=== PATIENT | female | born 1985 | race American Indian/Alaskan Native ===

== ENCOUNTER 2020-10-23 09:31 | Emergency (ER) | payer SELFPAY ==
[2020-10-23 09:50] VITALS: BP 130/53
[2020-10-23] MEDS ORDERED: SODIUM CHLORIDE 0.9% 1000 ML 1,000 ML IV ONE (10:16)
[2020-10-23] MEDS ORDERED: diphenhydrAMINE 50 MG/ML VIAL IV ONE (10:16)
[2020-10-23] MEDS ORDERED: DICYCLOMINE 20 MG/2 ML INJ IM ONE (10:16)
--- NOTE | 2020-10-23 10:19 | Emergency Department Report ---
ED General Adult HPI - General Chief complaint: Abdominal Pain Stated complaint: ABD PAIN Time Seen by Provider: 10/23/20 09:59 Source: patient, EMS Mode of arrival: Stretcher Limitations: No Limitations - History of Present Illness Initial comments: 34-year-old female patient presents to the emergency department via EMS with complaints of abdominal pain, nausea, vomiting, and diarrhea starting this morning. Patient states she took oral antibiotics for pelvic inflammatory disease on an empty stomach prior to the onset of her symptoms. States she has had four episodes of nonbloody diarrhea today. No known sick contacts. No recent travel. Last menstrual period was "last month sometime." No prior abdominal surgeries. Denies fever, chills, cough, hematemesis, back pain, constipation, rash, urinary symptoms. Denies all other complaints at this time. - Related Data Previous Rx's Medication Instructions Recorded Last Taken Type Metoclopramide [Reglan] 10 mg PO TID #20 tab 10/23/20 Unknown Rx Allergies Allergy/AdvReac Type Severity Reaction Status Date / Time No Known Allergies Allergy Unverified 10/23/20 09:50 ED Review of Systems ROS: Stated complaint: ABD PAIN Other details as noted in HPI Other: GENERAL: Positive for chills. ENT: Negative for ear pain, difficulty hearing, sore throat, nasal congestion, epistaxis. CARDIOVASCULAR: Negative for chest pain, palpitations, lower extremity swelling. PULMONARY: Negative for cough, dyspnea, wheezing, orthopnea, cyanosis. GASTROINTESTINAL: Positive for abdominal pain, nausea, vomiting, diarrhea. MUSCULOSKELETAL: Negative for joint pain, joint swelling, myalgias, back pain, neck pain. NEUROLOGICAL: Positive for generalized weakness. INTEGUMENTARY: Negative for erythema, rash, diaphoresis, laceration, ecchymosis. HEMATOLOGICAL: Negative for hemoptysis, hematemesis, hematochezia, hematuria. PSYCHIATRIC: Negative for hallucinations, suicidal ideation, homicidal ideation, anxiety, depression. ED Past Medical Hx - Past Medical History Previous Medical History?: Yes Additional medical history: heart murmur - Surgical History Past Surgical History?: Yes Additional Surgical History: - Medications Home Medications: Home Medications Medication Instructions Recorded Confirmed Last Taken Type Metoclopramide [Reglan] 10 mg PO TID #20 tab 10/23/20 Unknown Rx ED Physical Exam - General Limitations: No Limitations - Other Other exam information: General: Awake and alert. Actively vomiting. Appears uncomfortable. Head: Atraumatic, normocephalic. Eyes: EOMI. Pupils are equal and round. Normal sclera and conjunctiva. ENT: Oral mucosa is moist. Normal pharyngeal exam. Neck: Supple. No lymphadenopathy. Pulmonary: No respiratory distress. Clear to auscultation bilaterally. Cardiac: Regular rate and rhythm. Pulses are palpable and equal bilaterally. No lower extremity cyanosis or edema. Skin: Warm and dry. No rashes. Abdomen: Soft, non-protuberant. Epigastric and left upper quadrant tenderness without guarding, rigidity, or rebound. Bowel sounds are normal. No organomegaly or masses noted. McBurney's point is nontender. Mcclain sign is negative. Back: Normal alignment. No CVA tenderness. Extremities: Symmetrical. Full range of motion intact. Neurological: Alert and oriented, appropriately interactive, no focal deficits. Psych: Cooperative. Appropriate mood and affect. Speech is evenly metered. Thoughts are logically construed. ED Course Vital Signs 10/23/20 09:43 Temperature 97.6 F Pulse Rate 68 Respiratory 24 Rate Blood Pressure 130/53 [Right] O2 Sat by Pulse 97 Oximetry ED Medical Decision Making - Lab Data Result diagrams: 10/23/20 10:09 10/23/20 10:09 - Medical Decision Making Differential diagnosis including but not limited to: appendicitis, pancreatitis, cholecystitis, cholelithiasis, peptic ulcer disease, dehydration, electrode abnormality, hypoglycemia, pyelonephritis, nephrolithiasis, urinary tract infection, , adverse medication effect On reevaluation, patient remains stable. Repeat abdominal exam is benign. She is resting comfortably, no acute distress. She is tolerating p.o. fluids without difficulty. She is ambulatory without assistance. Labs are unremarkable; urinalysis without evidence of infection. test is negative. Patient is already being treated for PID, currently taking oral antibiotics. Symptoms attributable to adverse medication effect from taking antibiotics without food. No clinical indication for further diagnostic work-up on an emergent basis at this time. Emphasized the importance of adhering to previously prescribed medication regimen. She will be prescribed antiemetics and advised to follow-up with primary care provider. Patient expressed understanding and is agreeable to plan of care. Strict return precautions provided. Repeat exam is unremarkable and benign. History, exam, diagnostic testing, and current condition do not suggest worrisome pathology to warrant further testing, continued ED treatment, admission, or surgical evaluation at this point. Given the low probability of a significant medical illness, it would be more likely to result in harm than benefit to perform further testing at this stage. Discussed findings, presumptive diagnosis, need for follow-up and specific signs/symptoms that should prompt immediate return to the emergency department. Instructions were explained in detail to the patient in addition to giving written discharge information. Patient expressed understanding and was given the opportunity to ask questions, all of which were satisfactorily answered prior to discharge home. Critical care attestation.: If time is entered above; I have spent that time in minutes in the direct care of this critically ill patient, excluding procedure time. ED Disposition Clinical Impression: Nausea vomiting and diarrhea Disposition: - TO HOME OR SELFCARE Is pt being admited?: No Does the pt Need Aspirin: No Condition: Stable Instructions: Nausea and Vomiting, Adult, Abdominal Pain (ED) Additional Instructions: Continue all medications as previously prescribed. Be sure to take your antibiotics with food. Take Reglan as directed for nausea/vomiting. Rest. Drink plenty of fluids. Gradually advance diet slowly as tolerated. Follow-up with your primary care provider as previously scheduled. Call today to confirm your appointment. Return to the emergency department immediately for new or worsening symptoms. Specifically, return to the emergency department immediately for fever, increased vomiting, worsening abdominal pain, dehydration, mental status changes , rash, or any other concerns. Prescriptions: Metoclopramide [Reglan] 10 mg PO TID #20 tab Referrals: KATIE KRISHNAN MD [Staff Physician] - 3-5 Days Time of Disposition: 14:58
[2020-10-23 10:40] LABS: Basophils # (Auto) 0.1 K/mm3 (0.0-0.1); Eosinophils % (Auto) 0.7 % (0.0-4.3); Hematocrit 38.1 % (30.3-42.9); Lymphocytes # (Auto) 1.2 K/mm3 (1.2-5.4); Lymphocytes % (Auto) 17.4 % (13.4-35.0); Mean Corpuscular HGB Conc 34 % (30-34); Mean Corpuscular Volume 101 fl (79-97); Monocytes # (Auto) 0.5 K/mm3 (0.0-0.8); Monocytes % (Auto) 7.2 % (0.0-7.3); Platelet Count 286 K/mm3 (140-440); Red Blood Count 3.78 M/mm3 (3.65-5.03); Red Cell Distribution Width 15.1 % (13.2-15.2)
[2020-10-23] MEDS ORDERED: PROCHLORPERAZINE EDISYLATE 10 MG/2 ML VIAL IV ONE (11:00)
[2020-10-23 11:01] LABS: Alanine Aminotransferase 17 units/L (7-56); Albumin 4.1 g/dL (3.9-5); Blood Urea Nitrogen 8 mg/dL (7-17); Calcium 9.3 mg/dL (8.4-10.2); Hemolysis Index 8
[2020-10-23 11:02] LABS: BUN/Creatinine Ratio 11
[2020-10-23 14:21] LABS: Bilirubin,Urine NEG (Negative); Blood,Urine NEG (Negative); Color,Urine Yellow (Yellow); Mucus,Urine 3+ /HPF; Urobilinogen,Urine < 2.0 mg/dL (<2.0)
== END 2020-10-23 15:34 | disposition home or self-care (01) ==
LOC: ED 09:31
DX: R11.2 Nausea with vomiting, unspecified (principal); R19.7 Diarrhea, unspecified; Z79.899 Other long term (current) drug therapy
CPT/HCPCS: 36415; 80053; 81001; 83690; 83735; 84703; 85025; 96361; 96372; 96374; 96375; 99284; J0500; J0780; J1200; J7030